=== PATIENT | female | born 1985 | race Caucasian/White ===

== ENCOUNTER 2016-04-29 02:01 | Inpatient (IN) | payer OTHER ==
[~2016-04-29] VITALS: Ht 165.1 cm; Wt 60.5 kg
[~2016-04-29 02:01] MED LIST: ATARAX,VISTARIL25 MG PO; AUGMENTIN875 MG PO; BENTYL20 MG PO; ENDOCET 5-3251 EACH PO; IMODIUM MS REL1 EACH PO; LIBRIUM25 MG PO; MOBIC7.5 MG PO; MOTRIN800 MG PO; Micronor,Nor-Q-D,Err PO; Motrin PO; NOHOMEMEDS; NORCO 5/3251 TABLET PO; NUVARING VAGIN1 EACH VG; VENTOLIN HFA18 GM IH; ZOFRAN ODT4 MG PO; Zoloft PO
[2016-04-29 04:19] LABS: HEMATOCRIT 37.3 % (36.0-46.0); MCH 35.4 PG (29.0-34.0); MCHC 34.9 G/DL (30.0-36.0); MCV 101.6 FL (83-99); RBC DIS.WIDTH-CV 13.5 % (11.8-14.6); RBC DIS.WIDTH-SD 49.2 % (39-53); RED BLOOD COUNT 3.67 M/uL (3.80-5.20); WHITE BLOOD COUNT 5.7 K/uL (4.1-10.2)
[2016-04-29 04:26] LABS: MEAN PLAT.VOLUME 8.5 uM^3 (9.5-12.4)
[2016-04-29 04:27] LABS: PLATELET COUNT 322 K/uL (156-360)
[2016-04-29 04:28] LABS: CHLORIDE 108 mEq/L (99-109); POTASSIUM 3.4 mEq/L (3.7-5.4); SODIUM 146 mEq/L (136-147)
[2016-04-29 04:31] LABS: GLUCOSE 116 mg/dL (70-99)
[2016-04-29 04:32] LABS: ANION GAP 10 MEQ/L (2-14); TOTAL BILIRUBIN 0.2 mg/dL (0.0-1.0)
[2016-04-29 04:34] LABS: GFR ESTIMATE (CALCULATED) > 59 mL/min/; SERUM ETHYL ALCOHOL 313 mg/dL
[2016-04-29 04:35] LABS: ALKALINE PHOSPHATASE 78 IU/L (3-129)
[2016-04-29 04:36] LABS: UREA NITROGEN (BUN) 3 mg/dL (9-23)
[2016-04-29 04:38] LABS: SALICYLATE < 5.0 MG/DL (15-30)
[2016-04-29 04:44] LABS: QUANTITATIVE HCG < 4.0 MIU/ML
[2016-04-29 05:06] LABS: ADD MIUA? YES; BILIRUBIN NEGATIVE; BLOOD NEGATIVE; COLOR YELLOW ((YELLOW)); GLUCOSE (STRIP) NEGATIVE; KETONES NEGATIVE; LEUKOCYTES SMALL; NITRITE NEGATIVE; PROTEIN (STRIP) NEGATIVE; SPECIFIC GRAVITY 1.013 (1.000-1.030)
[2016-04-29 05:15] LABS: ADD MEDTOX COMMENT Y; AMPHETAMINE NEGATIVE (500 ng/mL); BARBITURATES NEGATIVE (200 ng/mL); BENZODIAZEPINES PRESUMPTIVE POSITIVE (150 ng/mL); COCAINE NEGATIVE (150 ng/mL); INTERNAL CONTROLS VALID? YES; METHADONE NEGATIVE (200 ng/mL); METHAMPHETAMINE NEGATIVE (500 ng/mL); OPIATES (MORPHINE) NEGATIVE (100 ng/mL); OXYCODONE NEGATIVE (100 ng/mL); PHENCYCLIDINE NEGATIVE (25 ng/mL); PROPOXYPHENE NEGATIVE (300 ng/mL); THC CANNABINOIDS NEGATIVE (50 ng/mL); TRICYCLIC ANTIDEPRESSANTS NEGATIVE (300 ng/mL)
[2016-04-29 05:53] LABS: BACTERIA RARE; CASTS NONE SEEN /LPF; CRYSTALS NONE SEEN; EPITHELIAL CELLS RARE; MUCUS NONE SEEN; RED BLOOD CELLS 0-5 /HPF (0-5); UCUL ADDED? NO
[2016-04-29 06:03] LABS: BENZODIAZEPINES, URINE SCREEN POSITIVE (200 ng/mL)
[2016-04-29] MEDS ORDERED: LIBRIUM25 MG PO (14:14)
[2016-04-29] MEDS ORDERED: QUETIAPINE FUM100 MG PO (16:06)
[2016-04-29] MEDS ORDERED: NICOTINE PATCH1 EAC2 TD (16:07)
[2016-04-29] MEDS ORDERED: IBUPROFEN400 MG PO (16:08)
[2016-04-29 16:10] VITALS: BP 118/73
[2016-04-30 08:04] VITALS: BP 122/70
[2016-04-30 16:04] VITALS: BP 133/71
[2016-05-01 07:52] VITALS: BP 130/82
[2016-05-01] MEDS ORDERED: QUETIAPINE FUM100 MG PO (11:50)
== END 2016-05-01 12:19 | disposition home or self-care (01) | DRG 885 ==
LOC: EME 02:01 → EDOF 13:29 → 1WEST 13:29 → EDOF 13:29 → 1WEST 15:54
PROVIDERS: Emergency Medicine
PROC: 0HQEXZZ Repair Left Lower Arm Skin, External Approach (ICD-10-PCS; principal; 2016-04-29)
DX: F33.9 Major depressive disorder, recurrent, unspecified (principal); R45.851 Suicidal ideations; F10.129 Alcohol abuse with intoxication, unspecified; S61.512A Laceration without foreign body of left wrist, initial encounter; F60.9 Personality disorder, unspecified; X78.1XXA Intentional self-harm by knife, initial encounter; Z91.128 Patient's intentional underdosing of medication regimen for other reason; F12.90 Cannabis use, unspecified, uncomplicated; F17.210 Nicotine dependence, cigarettes, uncomplicated; Y90.8 Blood alcohol level of 240 mg/100 ml or more; Z91.19 Patient's noncompliance with other medical treatment and regimen; F19.10 Other psychoactive substance abuse, uncomplicated; Z88.2 Allergy status to sulfonamides; Y92.099 Unspecified place in other non-institutional residence as the place of occurrence of the external cause
CPT/HCPCS: 80053; 81003; 84702; 84999; 85027; 90837; 97150 GO; 97165 GO; 99281; 99285; G0480

== ENCOUNTER 2016-05-01 22:50 | Emergency (ER) | payer OTHER ==
[~2016-05-01] VITALS: Ht 165.1 cm; Wt 59.0 kg
[~2016-05-01 22:50] MED LIST changes: +IBUPROFEN400 MG PO; +NICOTINE PATCH1 EAC2 TD; +QUETIAPINE FUM100 MG PO
[2016-05-01 23:38] LABS: AMPHETAMINE NEGATIVE (500 ng/mL); BARBITURATES NEGATIVE (200 ng/mL); BENZODIAZEPINES PRESUMPTIVE POSITIVE (150 ng/mL); COCAINE NEGATIVE (150 ng/mL); METHADONE NEGATIVE (200 ng/mL); METHAMPHETAMINE NEGATIVE (500 ng/mL); OPIATES (MORPHINE) NEGATIVE (100 ng/mL); OXYCODONE NEGATIVE (100 ng/mL); PHENCYCLIDINE NEGATIVE (25 ng/mL); PROPOXYPHENE NEGATIVE (300 ng/mL); THC CANNABINOIDS NEGATIVE (50 ng/mL); TRICYCLIC ANTIDEPRESSANTS NEGATIVE (300 ng/mL)
[2016-05-01 23:39] LABS: ADD MEDTOX COMMENT Y; INTERNAL CONTROLS VALID? YES
[2016-05-01 23:51] LABS: CHLORIDE 113 mEq/L (99-109); POTASSIUM 3.4 mEq/L (3.7-5.4); SODIUM 147 mEq/L (136-147)
[2016-05-01 23:53] LABS: GLUCOSE 104 mg/dL (70-99)
[2016-05-01 23:54] LABS: ANION GAP 12 MEQ/L (2-14)
[2016-05-01 23:56] LABS: SERUM ETHYL ALCOHOL 346 mg/dL
[2016-05-01 23:57] LABS: GFR ESTIMATE (CALCULATED) > 59 mL/min/
[2016-05-01 23:58] LABS: UREA NITROGEN (BUN) 3 mg/dL (9-23)
[2016-05-02 00:07] LABS: QUANTITATIVE HCG < 4.0 MIU/ML
[2016-05-02 01:07] LABS: HEMATOCRIT 36.5 % (36.0-46.0); MCH 36.2 PG (29.0-34.0); MCHC 35.1 G/DL (30.0-36.0); MCV 103.1 FL (83-99); MEAN PLAT.VOLUME 8.5 uM^3 (9.5-12.4); PLATELET COUNT 332 K/uL (156-360); RBC DIS.WIDTH-CV 13.5 % (11.8-14.6); RBC DIS.WIDTH-SD 49.6 % (39-53); RED BLOOD COUNT 3.54 M/uL (3.80-5.20); WHITE BLOOD COUNT 8.6 K/uL (4.1-10.2)
[2016-05-02 01:41] LABS: BENZODIAZEPINES QUANT VALUE 0 NG/ML
[2016-05-02 02:02] LABS: BENZODIAZEPINES, URINE SCREEN Negative (200 ng/mL)
[2016-05-02 11:13] VITALS: BP 100/56
== END 2016-05-02 11:23 | disposition home or self-care (01) ==
LOC: EME → EDBD 22:50 → EME 05-02 11:23
PROVIDERS: Emergency Medicine
DX: F33.8 Other recurrent depressive disorders (principal); R45.851 Suicidal ideations; F10.229 Alcohol dependence with intoxication, unspecified; Y90.8 Blood alcohol level of 240 mg/100 ml or more; F17.200 Nicotine dependence, unspecified, uncomplicated
CPT/HCPCS: 80048; 84702; 84999; 85027; 90837; 99281; 99285; G0480; J1630; J2060

== ENCOUNTER 2016-06-23 20:40 | Emergency (ER) | payer OTHER ==
[~2016-06-23] VITALS: Ht 170.2 cm; Wt 61.2 kg
[2016-06-23 21:33] LABS: HEMATOCRIT 37.3 % (36.0-46.0); MCV 105.7 FL (83-99); MEAN PLAT.VOLUME 8.2 uM^3 (9.5-12.4); PLATELET COUNT 295 K/uL (156-360); RBC DIS.WIDTH-CV 13.4 % (11.8-14.6); RBC DIS.WIDTH-SD 50.4 % (39-53); RED BLOOD COUNT 3.53 M/uL (3.80-5.20); WHITE BLOOD COUNT 9.1 K/uL (4.1-10.2)
[2016-06-23 21:43] LABS: CHLORIDE 111 mEq/L (99-109); POTASSIUM 4.5 mEq/L (3.7-5.4); SODIUM 146 mEq/L (136-147)
[2016-06-23 21:45] LABS: GLUCOSE 97 mg/dL (70-99)
[2016-06-23 21:46] LABS: ANION GAP 9 MEQ/L (2-14)
[2016-06-23 21:47] LABS: ADD MIUA? YES; BILIRUBIN NEGATIVE; BLOOD SMALL; COLOR STRAW ((YELLOW)); GLUCOSE (STRIP) NEGATIVE; KETONES NEGATIVE; LEUKOCYTES SMALL; NITRITE NEGATIVE; PROTEIN (STRIP) NEGATIVE; SPECIFIC GRAVITY 1.002 (1.000-1.030); UROBILINOGEN 0.2 MG/DL (0.2-1.0)
[2016-06-23 21:48] LABS: GFR ESTIMATE (CALCULATED) > 59 mL/min/; SERUM ETHYL ALCOHOL 281 mg/dL
[2016-06-23 21:49] LABS: UREA NITROGEN (BUN) 3 mg/dL (9-23)
[2016-06-23 21:57] LABS: BACTERIA NONE SEEN /HPF; EPITHELIAL CELLS RARE /HPF; MUCUS NONE SEEN /LPF; RED BLOOD CELLS 0-5 /HPF (0-5); UCUL ADDED? NO; UNCLASSIFIED CRYSTALS 2+ /HPF; WHITE BLOOD CELLS 0-5 /HPF (0-5)
[2016-06-23 22:04] LABS: SALICYLATE < 5.0 MG/DL (15-30)
[2016-06-23 22:10] LABS: QUANTITATIVE HCG < 4.0 MIU/ML
[2016-06-23 22:22] LABS: AMPHETAMINE NEGATIVE (500 ng/mL); BARBITURATES NEGATIVE (200 ng/mL); BENZODIAZEPINES NEGATIVE (150 ng/mL); COCAINE NEGATIVE (150 ng/mL); INTERNAL CONTROLS VALID? YES; METHADONE NEGATIVE (200 ng/mL); METHAMPHETAMINE NEGATIVE (500 ng/mL); OPIATES (MORPHINE) NEGATIVE (100 ng/mL); OXYCODONE NEGATIVE (100 ng/mL); PHENCYCLIDINE NEGATIVE (25 ng/mL); PROPOXYPHENE NEGATIVE (300 ng/mL); THC CANNABINOIDS NEGATIVE (50 ng/mL); TRICYCLIC ANTIDEPRESSANTS NEGATIVE (300 ng/mL)
[2016-06-24 05:27] VITALS: BP 126/85
== END 2016-06-24 05:45 | disposition home or self-care (01) ==
LOC: EME → EDBD 20:40 → EME 20:40
PROVIDERS: Emergency Medicine
DX: F33.8 Other recurrent depressive disorders (principal); F10.20 Alcohol dependence, uncomplicated; F31.9 Bipolar disorder, unspecified; F41.1 Generalized anxiety disorder; Z88.2 Allergy status to sulfonamides; Z91.040 Latex allergy status; F17.200 Nicotine dependence, unspecified, uncomplicated
CPT/HCPCS: 80048; 81003; 84702; 85027; 90837; 99281; 99284; G0480

== ENCOUNTER 2016-07-08 01:05 | Emergency (ER) | payer OTHER ==
[~2016-07-08] VITALS: Ht 170.2 cm; Wt 62.0 kg
[2016-07-08 01:53] LABS: BASOPHIL COUNT 0.1 K/uL (0-0.1); EOSINOPHIL (%) 1.4 % (0-5); EOSINOPHIL COUNT 0.1 K/uL (0-0.3); HEMATOCRIT 40.5 % (36.0-46.0); IMMATURE GRANULOCYTE (%) 0.4 % (0.0-0.7); INSTRUMENT ABS NEUTROPHIL CT 2.8 K/uL; LYMPHOCYTE COUNT 3.8 K/uL (1.0-2.8); MCHC 34.1 G/DL (30.0-36.0); MCV 102.8 FL (83-99); MEAN PLAT.VOLUME 8.5 uM^3 (9.5-12.4); MONOCYTE (%) 7.6 % (3-12); MONOCYTE COUNT 0.6 K/uL (0-0.8); NEUTROPHIL (%) 37.6 % (45-76); NEUTROPHIL COUNT 2.8 K/uL (1.8-6.4); PLATELET COUNT 303 K/uL (156-360); RBC DIS.WIDTH-CV 13.2 % (11.8-14.6); RBC DIS.WIDTH-SD 50.7 % (39-53); RED BLOOD COUNT 3.94 M/uL (3.80-5.20); WHITE BLOOD COUNT 7.3 K/uL (4.1-10.2)
[2016-07-08 02:03] LABS: CHLORIDE 105 mEq/L (99-109); POTASSIUM 3.5 mEq/L (3.7-5.4); SODIUM 143 mEq/L (136-147)
[2016-07-08 02:06] LABS: GLUCOSE 105 mg/dL (70-99)
[2016-07-08 02:07] LABS: ANION GAP 13 MEQ/L (2-14)
[2016-07-08 02:08] LABS: TOTAL BILIRUBIN 0.2 mg/dL (0.0-1.0)
[2016-07-08 02:09] LABS: ALKALINE PHOSPHATASE 75 IU/L (3-129); SERUM ETHYL ALCOHOL 290 mg/dL
[2016-07-08 02:10] LABS: GFR ESTIMATE (CALCULATED) > 59 mL/min/
[2016-07-08 02:11] LABS: UREA NITROGEN (BUN) 3 mg/dL (9-23)
[2016-07-08 02:13] LABS: LIPASE 54 U/L (1.0-51.0)
[2016-07-08 02:18] LABS: QUANTITATIVE HCG < 4.0 MIU/ML
[2016-07-08 05:03] LABS: ADD MIUA? YES; BILIRUBIN NEGATIVE; BLOOD NEGATIVE; COLOR YELLOW ((YELLOW)); GLUCOSE (STRIP) NEGATIVE; KETONES NEGATIVE; LEUKOCYTES LARGE; NITRITE NEGATIVE; PROTEIN (STRIP) NEGATIVE; SPECIFIC GRAVITY 1.006 (1.000-1.030); UROBILINOGEN 0.2 MG/DL (0.2-1.0)
[2016-07-08 05:12] LABS: BACTERIA RARE /HPF; EPITHELIAL CELLS RARE /HPF; MUCUS TRACE /LPF; RED BLOOD CELLS 0-5 /HPF (0-5); UCUL ADDED? NO; WHITE BLOOD CELLS 30-40 /HPF (0-5)
[2016-07-08 05:14] LABS: ADD MEDTOX COMMENT Y; AMPHETAMINE NEGATIVE (500 ng/mL); BARBITURATES NEGATIVE (200 ng/mL); BENZODIAZEPINES NEGATIVE (150 ng/mL); COCAINE NEGATIVE (150 ng/mL); INTERNAL CONTROLS VALID? YES; METHADONE NEGATIVE (200 ng/mL); METHAMPHETAMINE NEGATIVE (500 ng/mL); OPIATES (MORPHINE) NEGATIVE (100 ng/mL); OXYCODONE NEGATIVE (100 ng/mL); PHENCYCLIDINE NEGATIVE (25 ng/mL); PROPOXYPHENE NEGATIVE (300 ng/mL); THC CANNABINOIDS PRESUMPTIVE POSITIVE (50 ng/mL); TRICYCLIC ANTIDEPRESSANTS NEGATIVE (300 ng/mL)
[2016-07-08] MEDS ORDERED: LIBRIUM25 MG PO (05:23)
[2016-07-08] MEDS ORDERED: ZOFRAN ODT4 MG PO (05:23)
[2016-07-08] MEDS ORDERED: MACROBID100 MG PO (05:24)
[2016-07-08 05:37] VITALS: BP 104/55
== END 2016-07-08 05:38 | disposition home or self-care (01) ==
LOC: EME → EDBD 01:05 → EME 05:38
PROVIDERS: Emergency Medicine
DX: F10.229 Alcohol dependence with intoxication, unspecified (principal); R11.2 Nausea with vomiting, unspecified; N39.0 Urinary tract infection, site not specified; F17.200 Nicotine dependence, unspecified, uncomplicated; Y90.8 Blood alcohol level of 240 mg/100 ml or more
CPT/HCPCS: 80053; 81003; 83690; 84702; 84999; 85025; 87086; 99281; 99285; G0480; J2405; J2765; J7030

== ENCOUNTER 2017-01-06 05:42 | Emergency (ER) | payer OTHER ==
[~2017-01-06] VITALS: Ht 170.2 cm; Wt 62.8 kg
[~2017-01-06 05:42] MED LIST changes: +MACROBID100 MG PO
[2017-01-06 07:04] VITALS: BP 116/67
[2017-01-06] MEDS ORDERED: AMITRIPTYLINE H50 MG PO (07:05)
[2017-01-06] MEDS ORDERED: OLANZAPINE5 MG PO (07:05)
[2017-01-06] MEDS ORDERED: BUSPAR10 MG PO (07:05)
== END 2017-01-06 07:21 | disposition home or self-care (01) ==
LOC: EME 05:42
DX: R51 Headache (principal); Y04.2XXA Assault by strike against or bumped into by another person, initial encounter; F17.200 Nicotine dependence, unspecified, uncomplicated; Z88.2 Allergy status to sulfonamides; Z91.040 Latex allergy status
CPT/HCPCS: 70450; 70486; 99281; 99283

== ENCOUNTER 2017-01-23 21:10 | Emergency (ER) | payer OTHER ==
[~2017-01-23] VITALS: Ht 170.2 cm; Wt 66.0 kg
[~2017-01-23 21:10] MED LIST changes: +AMITRIPTYLINE H50 MG PO; +BUSPAR10 MG PO; +OLANZAPINE5 MG PO
[2017-01-23] MEDS ORDERED: THIAMINE HCL100 MG PO (22:28)
[2017-01-23] MEDS ORDERED: LIBRIUM25 MG PO (22:28)
[2017-01-23 22:58] VITALS: BP 135/79
== END 2017-01-23 23:02 | disposition home or self-care (01) ==
LOC: EME → EDBD 21:10 → EME 23:02
DX: G56.02 Carpal tunnel syndrome, left upper limb (principal); M54.16 Radiculopathy, lumbar region
CPT/HCPCS: 99281; 99283

== ENCOUNTER 2017-06-30 14:24 | Emergency (ER) | payer OTHER ==
[~2017-06-30] VITALS: Ht 170.2 cm; Wt 65.4 kg
[~2017-06-30 14:24] MED LIST changes: +THIAMINE HCL100 MG PO
[2017-06-30] MEDS ORDERED: MOBIC7.5 MG PO (15:05)
[2017-06-30] MEDS ORDERED: CLEOCIN300 MG PO (15:05)
[2017-06-30 15:33] VITALS: BP 126/75
== END 2017-06-30 15:33 | disposition home or self-care (01) ==
LOC: EME 14:24
DX: K02.9 Dental caries, unspecified (principal); K04.7 Periapical abscess without sinus; F17.200 Nicotine dependence, unspecified, uncomplicated; Z91.81 History of falling; Z91.040 Latex allergy status; Z88.2 Allergy status to sulfonamides
CPT/HCPCS: 99281; 99283

== ENCOUNTER 2017-07-17 02:07 | Emergency (ER) | payer OTHER ==
[~2017-07-17] VITALS: Ht 170.2 cm; Wt 63.0 kg
[~2017-07-17 02:07] MED LIST changes: +CLEOCIN300 MG PO
[2017-07-17 02:09] VITALS: BP 131/86
== END 2017-07-17 02:40 | disposition left against medical advice (07) ==
LOC: EME 02:07
DX: R51 Headache (principal); F10.99 Alcohol use, unspecified with unspecified alcohol-induced disorder; Z53.21 Procedure and treatment not carried out due to patient leaving prior to being seen by health care provider

== ENCOUNTER 2017-08-15 13:51 | Emergency (ER) | payer OTHER ==
[~2017-08-15] VITALS: Ht 170.2 cm; Wt 64.5 kg
[2017-08-15] MEDS ORDERED: OMEPRAZOLE40 M1 PO (15:33)
[2017-08-15 16:34] LABS: ALBUMIN 4.3 g/dL (3.2-4.8)
[2017-08-15 16:35] LABS: CHLORIDE 102 mEq/L (99-109); POTASSIUM 3.4 mEq/L (3.7-5.4); SODIUM 143 mEq/L (136-147)
[2017-08-15 16:37] LABS: GLUCOSE 111 mg/dL (70-99); TOTAL PROTEIN 7.2 g/dL (6.4-8.3)
[2017-08-15 16:39] LABS: TOTAL BILIRUBIN 0.5 mg/dL (0.0-1.0)
[2017-08-15 16:40] LABS: ALKALINE PHOSPHATASE 96 IU/L (3-129); SERUM ETHYL ALCOHOL 467 mg/dL
[2017-08-15 16:41] LABS: CREATININE 0.6 mg/dL (0.6-1.3); GFR ESTIMATE (CALCULATED) > 59 mL/min/
[2017-08-15 16:42] LABS: AST (GOT) 170 IU/L (2-34); UREA NITROGEN (BUN) 2 mg/dL (9-23)
[2017-08-15 16:44] LABS: ALT (GPT) 82 IU/L (3-49); LIPASE 34 U/L (1.0-51.0)
[2017-08-15 17:07] LABS: QUANTITATIVE HCG < 4.0 MIU/ML
[2017-08-15 17:17] LABS: APPEARANCE CLEAR ((CLEAR)); BILIRUBIN NEGATIVE; BLOOD SMALL; COLOR STRAW ((YELLOW)); GLUCOSE (STRIP) NEGATIVE; KETONES NEGATIVE; LEUKOCYTES NEGATIVE; NITRITE NEGATIVE; PROTEIN (STRIP) NEGATIVE; SPECIFIC GRAVITY 1.003 (1.000-1.030); UROBILINOGEN 0.2 MG/DL (0.2-1.0)
[2017-08-15 17:18] LABS: BACTERIA RARE /HPF; EPITHELIAL CELLS NONE SEEN /HPF; MUCUS NONE SEEN /LPF; RED BLOOD CELLS 0-5 /HPF (0-5); UCUL ADDED? NO; WHITE BLOOD CELLS 0-5 /HPF (0-5)
[2017-08-15 17:25] LABS: AMPHETAMINE NEGATIVE (500 ng/mL); BARBITURATES NEGATIVE (200 ng/mL); BENZODIAZEPINES NEGATIVE (150 ng/mL); BUPRENORPHINE NEGATIVE (10 ng/mL); COCAINE NEGATIVE (150 ng/mL); METHADONE NEGATIVE (200 ng/mL); METHAMPHETAMINE NEGATIVE (500 ng/mL); OPIATES (MORPHINE) PRESUMPTIVE POSITIVE (100 ng/mL); OXYCODONE NEGATIVE (100 ng/mL); PHENCYCLIDINE NEGATIVE (25 ng/mL); PROPOXYPHENE NEGATIVE (300 ng/mL); THC CANNABINOIDS NEGATIVE (50 ng/mL); TRICYCLIC ANTIDEPRESSANTS NEGATIVE (300 ng/mL)
[2017-08-15 17:42] LABS: HEMATOCRIT 41.5 % (36.0-46.0); HEMOGLOBIN 14.6 G/DL (11.9-15.5); MCH 36.4 PG (29.0-34.0); MCHC 35.2 G/DL (30.0-36.0); MCV 103.5 FL (83-99); PLATELET COUNT 207 K/uL (156-360); RBC DIS.WIDTH-CV 14.9 % (11.8-14.6); RBC DIS.WIDTH-SD 57.1 % (39-53); RED BLOOD COUNT 4.01 M/uL (3.80-5.20); WHITE BLOOD COUNT 8.8 K/uL (4.1-10.2)
[2017-08-15 18:51] VITALS: BP 117/78
== END 2017-08-15 18:52 | disposition home or self-care (01) ==
LOC: EME 13:51
PROVIDERS: Physician Assistant
DX: M54.5 Low back pain (principal); G89.29 Other chronic pain; F10.10 Alcohol abuse, uncomplicated; Z88.2 Allergy status to sulfonamides; Z91.040 Latex allergy status
CPT/HCPCS: 72131; 80053; 81003; 83690; 84702; 84999; 85027; 99281; 99283; G0480; J1885

== ENCOUNTER 2017-12-20 19:52 | Emergency (ER) | payer OTHER ==
[~2017-12-20] VITALS: Ht 170.2 cm; Wt 62.8 kg
[~2017-12-20 19:52] MED LIST changes: +OMEPRAZOLE40 M1 PO
[2017-12-20 19:56] VITALS: BP 130/88
[2017-12-20] MEDS ORDERED: NAPROSYN500 MG PO (22:33)
[2017-12-20] MEDS ORDERED: CLEOCIN150 MG PO (22:33)
== END 2017-12-20 23:31 | disposition home or self-care (01) ==
LOC: EME 19:52
DX: S90.31XA Contusion of right foot, initial encounter (principal); W20.8XXA Other cause of strike by thrown, projected or falling object, initial encounter; L02.415 Cutaneous abscess of right lower limb; Z91.040 Latex allergy status; Z88.1 Allergy status to other antibiotic agents; Z88.2 Allergy status to sulfonamides
CPT/HCPCS: 73630; 99281; 99283